=== PATIENT | male | born 1950 | race Caucasian/White ===

== ENCOUNTER → 2017-04-05 | Outpatient (CLI) | payer MEDICARE, BC ==
[~2017-04-05] MED LIST: CARB200 PO; LORTA5; PHEN100 PO; PROP80CA PO; TIZA4 PO; ZOLP10TA3 PO
--- NOTE | 2017-04-05 16:20 | RADRPT ---
EXAM DATE/TIME: 04/05/2017 00:00 [place] COMPARISON: No previous studies available for comparison. OUTSIDE STUDY REVIEWED: INDICATIONS : Right lung mass FINDINGS: Reviewed outside CT which showed nonspecific groundglass nodular densities in the right lower lobe. T hese are very nonspecific and I believe would be very difficult to biopsy percutaneously. I would rec ommend a three-month followup to see if there is interval resolution or progression of disease. RECOMMENDATION: Three-month noncontrasted CT scan of the chest FINDINGS: CONCLUSION: Nonspecific groundglass nodular densities in the right lung base. Recommend followup CT scan in 3 months. Florentino Dominguez MD on April 05, 2017 at 16:15 Board Certified Radiologist. This report was verified electronically.
== END ==
LOC: HRAD 15:44
DX: R91.8 Other nonspecific abnormal finding of lung field (principal)
CPT/HCPCS: 76140